=== PATIENT | female | born 1965 | race Caucasian/White ===

== ENCOUNTER 2016-11-29 13:05 | Day surgery (SDC) | payer OTHER ==
[~2016-11-29] VITALS: Ht 162.6 cm; Wt 75.3 kg
[~2016-11-29 13:05] MED LIST: AVINZA60 MG PO; CELEXA10 MG PO; COREG3.125 M1 PO; COREG3.125 MG PO; CYCLOBENZAPRINE10 M1 PO; DAILY VALUE1 EACH PO; EMS NITROSTAT0.4 M1 SL; ENDOCET 5-3251 EACH PO; GABAPENTIN800 MG PO; ISOSORBIDE DINI20 MG PO; KADIAN30 MG PO; KLONOPIN0.5 M1 PO; LO-DOSE ASPIRIN81 M1 PO; MELOXICAM15 MG PO; MELOXICAM7.5 MG PO; MORPHINE SULFAT30 M1 PO; NIASPAN500 MG PO; NITROSTAT0.4 MG SL; OXYCODONE HCL10 MG PO; PANTOPRAZOLE SO40 MG PO; PERCOCET 10/1 TABLET PO; PLAVIX75 MG PO; PROAIR HFA8.5 GM IH; RISPERDAL2 MG PO; ROBITUSSIN100 MG/5 M PO; SOMA350 MG PO; VALIUM5 MG PO; ZESTRIL2.5 MG PO; ZOCOR40 MG PO
== END 2016-11-29 14:44 | disposition home or self-care (01) ==
LOC: PAIN 13:05
DX: M47.816 Spondylosis without myelopathy or radiculopathy, lumbar region (principal); M54.5 Low back pain; F41.9 Anxiety disorder, unspecified; J45.909 Unspecified asthma, uncomplicated; I25.2 Old myocardial infarction; I10 Essential (primary) hypertension; E11.9 Type 2 diabetes mellitus without complications; F43.10 Post-traumatic stress disorder, unspecified; Z88.8 Allergy status to other drugs, medicaments and biological substances
CPT/HCPCS: J1030; J2250; J3010; S0020